=== PATIENT | male | born 1955 | race Caucasian/White ===

== ENCOUNTER 2017-01-24 20:50 | Emergency (ER) | payer OTHER ==
[2017-01-24] MEDS ORDERED: Ondansetron INJ* 2 MG/ML VIAL IV ONE (21:25)
[2017-01-24] MEDS ORDERED: Morphine INJ* 4 MG/ML 1 ML SYRINGE IV ONE (21:25)
[2017-01-24] MEDS ORDERED: NS 0.9% 1000 ML* 1,000 ML IV ONE (21:25)
[2017-01-24] MEDS ORDERED: Meropenem 1 GM PREMIX(*) 1 GM/50 ML BAG IV ONE (21:27)
[2017-01-24 22:24] LABS: Hematocrit 43 % (42-52); Mean Corpuscular HGB Conc 33 g/dl (31-36); Mean Corpuscular Hemoglobin 30 pg (27-31); Mean Corpuscular Volume 93 fL (80-94); Mean Platelet Volume 9 um3 (7.4-10.4); Red Blood Count 4.62 10^6/ul (4.0-5.4); Red Cell Distribution Width 14 % (10.5-15); White Blood Count 35.3 10^3/ul (3.5-10.8)
[2017-01-24] MEDS ORDERED: Acetaminophen TAB* 325 MG PO ONE (22:25)
[2017-01-24 22:27] LABS: Add Diff/Slide Review? Slide Review Added; Comments Flag Yes
[2017-01-24 22:36] LABS: Albumin 2.4 g/dL (3.2-5.2); BUN/Creatinine Ratio 26.2 (8-20); C Reactive Protein 333.61 mg/L (< 5.00); Calcium 8.5 mg/dL (8.6-10.3); EGFR African American 52.6 (>60); EGFR Non-African American 40.9 (>60); Globulin 4.6 g/dL (2-4); Immature Granulocytes 31 % (0-9); Metamyelocytes % 1 % (0-2); Neutrophil % 64 % (38-83); Potassium 3.5 mmol/L (3.5-5.0); RBC Morphology Normal (Normal); Total Bilirubin 1.2 mg/dL (0.2-1.0)
[2017-01-24 22:39] LABS: Troponin I 0.04 ng/mL (<0.04)
[2017-01-24] MEDS ORDERED: Lidocaine 1%* 5 ML VIAL ONE (23:00)
[2017-01-24] MEDS: NS 0.9% 1000 ML* 2,000 ML IV ONE ×2 (23:00→23:56)
[2017-01-24] MEDS ORDERED: NS 0.9% IV ONE (23:14)
--- NOTE | 2017-01-24 23:14 | ED ---
Kimberly Hernandez Thomas, scribed for Shantell Amor MD on 01/24/17 at 2222 . Abdominal Pain/Male - HPI Summary HPI Summary: The pt is a 61 y/o M presenting to the ED c/o intermittent LLQ abd pain that began four days ago s/p falling four days ago. The pain is aggravated by movement and alleviated by nothing. 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 Pt additionally c/o diarrhea, edema to his mid calf, fever (100.9 at home), and blood on the stretcher used to carry him of unknown origin. Pt denies weakness. He is on warfarin. His blood glucose was 181, measured by EMS. PMHx: DM, VA (20 years ago), A-Fib, HTN. PSHx: cardiac catheterization. SHx: no smoking, no alcohol use. FHx: HTN. - History of Current Complaint Chief Complaint: EDAbdPain Stated Complaint: ABD PAIN Time Seen by Provider: 01/24/17 21:13 Hx Obtained From: Patient, EMS Onset/Duration: Sudden Onset, Lasting Days - 4, Still Present, Worse Since - progressively Timing: Intermittent Location: Discrete At: LLQ Aggravating Factor(s): Nothing Alleviating Factor(s): Nothing Associated Signs And Symptoms: Positive: Fever, Diarrhea, Other - POS: edema to mid calf, blood on stretcher of unknown origin; NEG: weakness - Allergies/Home Medications Allergies/Adverse Reactions: Allergies Allergy/AdvReac Type Severity Reaction Status Date / Time No Known Allergies Allergy Verified 06/04/15 08:04 PMH/Surg Hx/FS Hx/Imm Hx Previously Healthy: No Endocrine/Hematology History: Reports: Hx Diabetes - BORDERLINE - NO MEDS, Hx Thyroid Disease - HYPOTHYROID Cardiovascular History: Reports: Hx Angina, Hx Coronary Artery Disease, Hx Hypertension, Hx Peripheral Vascular Disease - ON MEDICATION FOR, Other Cardiovascular Problems/Disorders - HX OF AFIB Respiratory History: Denies: Hx Asthma, Hx Chronic Obstructive Pulmonary Disease (COPD) GI History: Denies: Hx Ulcer Sensory History: Reports: Hx Cataracts - LEFT EYE, Hx Glaucoma - BILATERAL Denies: Hx Contacts or Glasses, Hx Hearing Aid Opthamlomology History: Reports: Hx Cataracts - LEFT EYE, Hx Glaucoma - BILATERAL Denies: Hx Contacts or Glasses - Surgical History Surgery Procedure, Year, and Place: RIGHT EYE CATARACT- 5 YEARS AGO. ANKLE SURGERY 25 YEARS AGO. 25 YEARS AGO- CARDIAC CATHETERIZATION Hx Anesthesia Reactions: No - Immunization History Date of Tetanus Vaccine: <10 years Date of Influenza Vaccine: Fall 2012 Infectious Disease History: No Infectious Disease History: Denies: Hx Hepatitis, Hx Human Immunodeficiency Virus (HIV), Traveled Outside the US in Last 30 Days - Family History Known Family History: Positive: Hypertension - Social History Alcohol Use: None Substance Use Type: Reports: None Smoking Status (MU): Never Smoked Tobacco Have You Smoked in the Last Year: No Review of Systems Positive: Fever - 101.4 in the ED Positive: Abdominal Pain - LLQ, onset 4 days ago s/p fall, Diarrhea, Other - POS : blood on stretcher of unknown origin Positive: Edema - to mid calf Neurological: Other - POS: fall Negative: Weakness All Other Systems Reviewed And Are Negative: Yes Physical Exam Triage Information Reviewed: Yes Vital Signs On Initial Exam: Initial Vitals Temp Pulse Resp BP Pulse Ox 101.4 F 99 17 118/103 96 01/24/17 21:02 01/24/17 21:02 01/24/17 21:02 01/24/17 21:02 01/24/17 21:02 Vital Signs Reviewed: Yes Appearance: Positive: Well-Appearing, No Pain Distress Skin: Positive: Warm, Skin Color Reflects Adequate Perfusion, Dry Eyes: Positive: EOMI, DELISA ENT: Positive: Pharynx normal, TMs normal, Other - He is mildly hard of hearing Neck: Positive: Supple, Nontender Respiratory/Lung Sounds: Positive: Clear to Auscultation, Breath Sounds Present , Other - Tachycardic. Negative: Rales, Rhonchi, Wheezes Cardiovascular: Positive: RRR. Negative: Murmur, Rub, Other - NEG: gallop Abdomen Description: Positive: Nontender, Soft, Other: - His abdomen is morbidly obese. He has LLQ pain on exam. When I lift the pannus, there appears to be a second pannus. This is erythamatous and tender to the touch. Most of his pain is in the LlQ. His penis and scrotum are intact but it is hard to tell. There is no rebound.. Negative: Distended, Guarding Bowel Sounds: Positive: Present Musculoskeletal: Positive: Strength/ROM Intact, Edema Left, Edema Right Neurological: Positive: Sensory/Motor Intact, Alert, Oriented to Person Place, Time, CN Intact II-III Psychiatric: Positive: Affect/Mood Appropriate Procedures - Procedure Summary Procedure Summary: Pt with pressures dropping into the 80's with subsequent loss of IV access. Nurses were able to get IV access, but IO placed in right tibia by me. Pt tolerated procedure well line flushed easily Diagnostics - Vital Signs Vital Signs Temp Pulse Resp BP Pulse Ox 01/24/17 21:02 101.4 F 99 17 118/103 96 - Laboratory Lab Results: Lab Results 01/24/17 01/24/17 01/24/17 Range/Units 21:50 21:50 21:50 WBC 35.3 H (3.5-10.8) 10^3/ul RBC 4.62 (4.0-5.4) 10^6/ul Hgb 14.0 (14.0-18.0) g/dl Hct 43 (42-52) % MCV 93 (80-94) fL MCH 30 (27-31) pg MCHC 33 (31-36) g/dl RDW 14 (10.5-15) % Plt Count 616 H (150-450) 10^3/ul MPV 9 (7.4-10.4) um3 Immature Gran % (Auto) 31 H (0-9) % Neut % (Auto) 94.6 H (38-83) % Lymph % (Auto) 1.6 L (25-47) % [place] % (Auto) 3.6 (1-9) % Eos % (Auto) 0 (0-6) % Baso % (Auto) 0.2 (0-2) % Absolute Neuts (auto) 33.3 H (1.5-7.7) 10^3/ul Absolute Lymphs (auto) 0.6 L (1.0-4.8) 10^3/ul Absolute Monos (auto) 1.3 H (0-0.8) 10^3/ul Absolute Eos (auto) 0 (0-0.6) 10^3/ul Absolute Basos (auto) 0.1 (0-0.2) 10^3/ul Absolute Nucleated RBC 0 10^3/ul Neutrophils % 64 (38-83) % Band Neutrophils % 30 H (0-8) % Lymphocytes % 2 L (25-47) % Monocytes % 3 (0-13) % Metamyelocytes % 1 (0-2) % Nucleated RBC % 0 Normal RBC Morphology Normal (Normal) Sodium 133 (133-145) mmol/L Potassium 3.5 (3.5-5.0) mmol/L Chloride 98 L (101-111) mmol/L Carbon Dioxide 20 L (22-32) mmol/L Anion Gap 15 H (2-11) mmol/L BUN 45 H (6-24) mg/dL Creatinine 1.72 H (0.67-1.17) mg/dL Est GFR ( Amer) 52.6 (>60) Est GFR (Non-Af Amer) 40.9 (>60) BUN/Creatinine Ratio 26.2 H (8-20) Glucose 204 H (70-100) mg/dL Calcium 8.5 L (8.6-10.3) mg/dL Total Bilirubin 1.20 H (0.2-1.0) mg/dL AST 28 (13-39) U/L ALT 20 (7-52) U/L Alkaline Phosphatase 102 (34-104) U/L Troponin I 0.04 H* (<0.04) ng/mL C-Reactive Protein 333.61 H (< 5.00) mg/L B-Natriuretic Peptide 245 H ( - 100) pg/mL Total Protein 7.0 (6.4-8.9) g/dL Albumin 2.4 L (3.2-5.2) g/dL Globulin 4.6 H (2-4) g/dL Albumin/Globulin Ratio 0.5 L (1-3) Lipase 16 (11.0-82.0) U/L Result Diagrams: 01/24/17 21:50 01/24/17 21:50 Lab Statement: Any lab studies that have been ordered have been reviewed, and results considered in the medical decision making process. - EKG 21:31 Cardiac Rate: Tachycardia - 171 BPM EKG Interpretation: A-Fib. RBBB. Abdominal Pain Fem Course/Dx - Course Course Of Treatment: 61 yo male with fever and llq and a very difficult abd exam given an extra panus wbc of 35 k with elevated lactic acid. On initial exam fluids were ordered slowly just because of the gentlemans size of 467 lbs, but now that labs are back 2L of fluid will be bolused in at a time to get to 6L assuming the pt tolerates it. Merepenem was ordered right after the initial exam because of the fever and llq pain. Case has been discussed with Dr. Brizuela for admission. Case then discussed with Dr. Morillo as pressures started to drop to the 80's. Yisel suggested placing an IO and giving the fluids and suggested it was ok to give pressors through the IO. Pt now in CT IO placed, fluids being given with pressure bags and case signed out to Dr. Mccann - Diagnoses Provider Diagnoses: Abdominal pain, Leukocytosis - Provider Notifications Discussed Care Of Patient With: Nuno Brizuela Time Discussed With Above Provider: 10:00 Instructed by Provider To: Other - Dr. Brizuela, legislative assistant, admits the [place] [facility] I also consulted with Dr. Hoover, cardiology, at 22:51 regarding patient care. He advised me to IO the patient. - Critical Care Time Critical Care Time: 30-74 min - 35 minutes Discharge - Discharge Plan Condition: Stable Disposition: HOME Referrals: Telly Godoy MD [Primary Care Provider] - The documentation as recorded by the Kimberly leigh Thomas accurately reflects the service I personally performed and the decisions made by me, Shantell Amor MD.
[2017-01-25] MEDS ORDERED: NS 0.9% 1000 ML* 1,000 ML IV SCH (01:30)
[2017-01-25 01:51] VITALS: BP 91/56
--- NOTE | 2017-01-25 07:28 | RAD ---
INDICATION: Fever. COMPARISON: There are no prior studies available for comparison. TECHNIQUE: A portable view of the chest was obtained. FINDINGS: The heart is moderately enlarged. The lungs are clear. No pleural effusion is seen. IMPRESSION: CARDIOMEGALY.
--- NOTE | 2017-01-25 07:59 | RAD ---
CLINICAL HISTORY: Moderately obese male with left lower quadrant pain COMPARISON: None TECHNIQUE: Multiple contiguous axial CT scans were obtained of the abdomen and pelvis after the administration of intravenous contrast. Coronal and sagittal multiplanar reformations are submitted for review. Oral contrast was administered. Delayed images were obtained through the abdomen and pelvis. FINDINGS: Evaluation is limited secondary to patient body habitus. LUNG BASES: The lung bases are clear. LIVER: The liver is homogeneously enlarged measuring 21 cm in long axis. BILE DUCTS: There is no intrahepatic or extrahepatic biliary dilatation. GALLBLADDER: Multiple gallstones are noted. There is no pericholecystic inflammatory change. PANCREAS: The pancreas is normal, without mass or ductal dilatation. SPLEEN: Normal in size and appearance. UPPER GI TRACT: Evaluation of the gastrointestinal tract is limited by incomplete gastric distention. The upper GI tract is unremarkable. SMALL BOWEL AND MESENTERY: The small bowel is normal in contour, course, and caliber. There is no obstruction or dilatation. COLON: The colon is normal in contour, course, caliber. There is no pericolonic inflammatory change. Normal appendix ADRENALS: Normal bilaterally. KIDNEYS: The kidneys are normal in shape, size, contour, and axis. There is no hydronephrosis or nephrolithiasis. BLADDER: The bladder is smooth in contour. PELVIC ORGANS: The prostate gland is normal. The seminal vesicles are symmetric. AORTA: The aorta is normal. IVC: Unremarkable LYMPH NODES: There is no lymphadenopathy by size criteria. ABDOMINAL WALL: There is no evidence for abdominal wall hernia. BONES AND SOFT TISSUES: Mild degenerative changes are noted. There is extensive subcutaneous emphysema of the the lower pelvis and perineum, with possible scrotal wall edema. There is minimal retroperitoneal extension on the right. OTHER: None IMPRESSION: 1. 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 2. CHOLELITHIASIS. 3. HEPATOMEGALY.
== END 2017-01-25 01:55 | disposition short-term general hospital (02) ==
LOC: ED 20:50
DX: R10.32 Left lower quadrant pain (principal); D72.829 Elevated white blood cell count, unspecified; I25.10 Atherosclerotic heart disease of native coronary artery without angina pectoris; I10 Essential (primary) hypertension; I73.9 Peripheral vascular disease, unspecified; I48.91 Unspecified atrial fibrillation; E11.9 Type 2 diabetes mellitus without complications; I25.2 Old myocardial infarction; Z79.01 Long term (current) use of anticoagulants; E03.9 Hypothyroidism, unspecified; R73.03 Prediabetes; I45.10 Unspecified right bundle-branch block; K80.20 Calculus of gallbladder without cholecystitis without obstruction; R16.0 Hepatomegaly, not elsewhere classified; I51.7 Cardiomegaly
CPT/HCPCS: 36415; 71010; 74176; 80053; 83605; 83690; 83880; 84484; 85025; 86140; 87040; 93005; 96360; 96361; 96374; 96375; 99285; A9270-GY; J2185; J2270; J2405

== ENCOUNTER → 2017-06-01 05:54 | Emergency (ER) | payer OTHER ==
[~2017-06-01 05:54] MED LIST: Acetaminophen TAB* 325 MG PO ONE; Diltiazem IV* 5 MG/ML 5 ML VIAL (for loading dose/IV Push) (25 MG) IV SLOW PU ONE; Diltiazem TAB* 30 MG PO ONE; Iodixanol* (CONTRAST) 320 MG/ML 100 ML SDV IV ONE; NS 0.9% 1000 ML* 1,000 ML IV ONE; NS 0.9% 1000 ML* 3,000 ML IV ONE; Piperacillin/Tazobac ADVAN(*) 3.375 GM in NS 0.9% 100 ML* 100 ML IVPB ONE; Vancomycin(*) 1,000 MG in NS 0.9% 250 ML* 250 ML IVPB ONE
[2017-06-01 06:43] LABS: ABS Basophils 0.1 10^3/ul (0-0.2); ABS Eosinophils 0 10^3/ul (0-0.6); ABS Lymphocytes 0.4 10^3/ul (1.0-4.8); ABS Monocytes 0.5 10^3/ul (0-0.8); ABS Neutrophils 19.9 10^3/ul (1.5-7.7); ABS Nucleated RBC 0 10^3/ul; Eosinophil % 0 % (0-6); Hematocrit 34 % (42-52); Hemoglobin 11.1 g/dl (14.0-18.0); Mean Corpuscular HGB Conc 33 g/dl (31-36); Mean Corpuscular Hemoglobin 29 pg (27-31); Mean Corpuscular Volume 87 fL (80-94); Mean Platelet Volume 9 um3 (7.4-10.4); Nucleated Red Blood Cells % 0; Platelet Count 196 10^3/ul (150-450); Red Blood Count 3.87 10^6/ul (4.0-5.4); Red Cell Distribution Width 17 % (10.5-15); White Blood Count 20.9 10^3/ul (3.5-10.8)
[2017-06-01 06:50] LABS: Urine Appearance Cloudy; Urine Blood 2+ (Negative); Urine Color Yellow; Urine Ketones Negative (Negative); Urine Protein 2+(100 mg/dL) (Negative); Urine Specific Gravity 1.016 (1.010-1.030); Urine Urobilinogen Negative (Negative)
[2017-06-01 06:55] LABS: INR 1.89 (0.77-1.02)
--- NOTE | 2017-06-01 06:56 | ED ---
Pierce Hernandez Abhishek, scribed for Leatha Valentino MD on 06/01/17 at 0617 . HPI Febrile Illness - HPI Summary HPI Summary: This patient is a 61 year old M BIBA accompanied by with a chief complaint of fever since 05/31/17 at 0000. The patient rates the pain 0/10 in severity. Symptoms aggravated by nothing. Symptoms alleviated by nothing. Patients reports speech deficit, lethargic, confusion, SOB, palpitation and weakness. Pertinent PMHx includes AFib. 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/Duration: Started Days Ago - since 05/31/16 at 0000, Still Present Timing: Constant Pain Intensity: 0 Pain Scale Used: 0-10 Numeric Aggravating Factors: Nothing Alleviating Factors: Nothing Associated Signs and Symptoms: SOB, Other: - Allergy/Home Medications Allergies/Adverse Reactions: Allergies Allergy/AdvReac Type Severity Reaction Status Date / Time No Known Allergies Allergy Verified 06/04/15 08:04 Home Medications: Home Medications DULoxetine DR CAP* [Cymbalta CAP*] 30 mg PO DAILY 06/01/17 [History Confirmed ] Diltiazem HCl Coated Beads [Cartia Xt] 120 mg PO DAILY 06/01/17 [History Confirmed 06/01/17] Insulin Glargine [Lantus] 30 unit SC DAILY 06/01/17 [History Confirmed 06/01/17] Rivaroxaban TAB(*) [Xarelto 20 mg] 20 mg PO DAILY 06/01/17 [History Confirmed ] PMH/Surg Hx/FS Hx/Imm Hx Endocrine/Hematology History: Reports: Hx Diabetes - BORDERLINE - NO MEDS, Hx Thyroid Disease - HYPOTHYROID Cardiovascular History: Reports: Hx Angina, Hx Coronary Artery Disease, Hx Hypertension, Hx Peripheral Vascular Disease - ON MEDICATION FOR, Other Cardiovascular Problems/Disorders - HX OF AFIB Respiratory History: Denies: Hx Asthma, Hx Chronic Obstructive Pulmonary Disease (COPD) GI History: Denies: Hx Ulcer Sensory History: Reports: Hx Cataracts - LEFT EYE, Hx Glaucoma - BILATERAL Denies: Hx Contacts or Glasses, Hx Hearing Aid Opthamlomology History: Reports: Hx Cataracts - LEFT EYE, Hx Glaucoma - BILATERAL Denies: Hx Contacts or Glasses - Surgical History Surgery Procedure, Year, and Place: RIGHT EYE CATARACT- 5 YEARS AGO. ANKLE SURGERY 25 YEARS AGO. 25 YEARS AGO- CARDIAC CATHETERIZATION Hx Anesthesia Reactions: No - Immunization History Date of Tetanus Vaccine: <10 years Date of Influenza Vaccine: Fall 2012 Infectious Disease History: Yes Infectious Disease History: Denies: Hx Hepatitis, Hx Human Immunodeficiency Virus (HIV), Traveled Outside the US in Last 30 Days - Family History Known Family History: Positive: Cardiac Disease - CAD, Hypertension - Social History Alcohol Use: None Substance Use Type: Reports: None Smoking Status (MU): Never Smoked Tobacco Have You Smoked in the Last Year: No Review of Systems Positive: Fever Eyes: Negative ENT: Negative Positive: Palpitations Positive: Shortness Of Breath Gastrointestinal: Negative Genitourinary: Negative Musculoskeletal: Negative Skin: Negative Neurological: Other - confusion Positive: Weakness Psychological: Other - lethargic All Other Systems Reviewed And Are Negative: Yes Physical Exam - Summary Physical Exam Summary: VITAL SIGNS: Reviewed. GENERAL: Lethargic HEAD AND FACE: No signs of trauma. No ecchymosis, hematomas or skull depressions. No sinus tenderness. EYES: PERRLA, EOMI x 2, No injected conjunctiva, no nystagmus. EARS: Hearing grossly intact. Ear canals and tympanic membranes are within normal limits. MOUTH: Oropharynx within normal limits. NECK: Supple, trachea is midline, no adenopathy, no JVD, no carotid bruit, no c- spine tenderness, neck with full ROM. CHEST: Symmetric, no tenderness at palpation LUNGS:Decreased breath sounds bilaterally CVS: Regular rate and rhythm, S1 and S2 present, no murmurs or gallops appreciated. ABDOMEN: Large raw area No skin over the suprapubic area No signs of acute infection in the skin region EXTREMITIES: FROM in all major joints, no edema, no cyanosis or clubbing. NEURO: Alert and oriented x 3. No acute neurological deficits. Speech is normal and follows commands. SKIN: Dry and warm Genitourinary: catheter that is draining Triage Information Reviewed: Yes Vital Signs On Initial Exam: Initial Vitals Temp Pulse Resp BP Pulse Ox 100.4 F 144 26 124/50 94 06/01/17 06:05 06/01/17 06:05 06/01/17 06:05 06/01/17 06:05 06/01/17 06:05 Vital Signs Reviewed: Yes - [place] Coma Scale Coma Scale Total: 15 Diagnostics - Vital Signs Vital Signs Temp Pulse Resp BP Pulse Ox 06/01/17 06:05 100.4 F 144 26 124/50 94 - Laboratory Lab Results: Lab Results 06/01/17 06/01/17 06/01/17 Range/Units 06:25 06:25 06:30 WBC 20.9 H (3.5-10.8) 10^3/ul RBC 3.87 L (4.0-5.4) 10^6/ul Hgb 11.1 L (14.0-18.0) g/dl Hct 34 L (42-52) % MCV 87 (80-94) fL MCH 29 (27-31) pg MCHC 33 (31-36) g/dl RDW 17 H (10.5-15) % Plt Count 196 (150-450) 10^3/ul MPV 9 (7.4-10.4) um3 Neut % (Auto) 95.2 H (38-83) % Lymph % (Auto) 2.0 L (25-47) % [place] % (Auto) 2.5 (1-9) % Eos % (Auto) 0 (0-6) % Baso % (Auto) 0.3 (0-2) % Absolute Neuts (auto) 19.9 H (1.5-7.7) 10^3/ul Absolute Lymphs (auto) 0.4 L (1.0-4.8) 10^3/ul Absolute Monos (auto) 0.5 (0-0.8) 10^3/ul Absolute Eos (auto) 0 (0-0.6) 10^3/ul Absolute Basos (auto) 0.1 (0-0.2) 10^3/ul Absolute Nucleated RBC 0 10^3/ul Nucleated RBC % 0 INR (Anticoag Therapy) 1.89 H (0.77-1.02) APTT 40.4 H (26.0-36.3) seconds Urine Color Yellow Urine Appearance Cloudy Urine pH 5.0 (5-9) Ur Specific [place] 1.016 (1.010-1.030) Urine Protein 2+(100 mg/dl) H (Negative) Urine Ketones Negative (Negative) Urine Blood 2+ H (Negative) Urine Nitrate Positive H (Negative) Urine Bilirubin Negative (Negative) Urine Urobilinogen Negative (Negative) Ur Leukocyte Esterase 3+ H (Negative) Urine WBC (Auto) 3+(>20/hpf) H (Absent) Urine RBC (Auto) 3+(>10/hpf) H (Absent) Urine Bacteria 2+ H (Absent) Urine Glucose Negative (Negative) Result Diagrams: 06/01/17 06:25 Lab Statement: Any lab studies that have been ordered have been reviewed, and results considered in the medical decision making process. - Radiology Chest X-ray Radiology Interpretation Completed By: ED Physician - CXR reveals, per radiologist, Cardiomegaly and acute infiltrate as per ED physician. - EKG 0612 EKG Rhythm: Atrial Fibrillation EKG Interpretation: An EKG at 0612 reveals AFIB at 111 bpm, RBBB and no ischemic changes Course/Dx - Course Course Of Treatment: The pt arrived to the [facility] via ambulance presenting with c /o of fever, lethargy, weakness, and SOB. Pertinent PMHx includes AFib. the pt will be signed out to Dr. Cee, pending disposition and awaiting lab results. Dx will be urinary tract infection. Pt will be given 1 liter of IV fluid to avoid volume overload. - Diagnoses Provider Diagnoses: Urinary tract infection Discharge - Discharge Plan Condition: Stable Disposition: OTHER Discharge Disposition Comment: Pt will be signed out to Dr. Cee, pending disposition. Referrals: Telly Godoy MD [Primary Care Provider] - The documentation as recorded by the Pierce leigh Abhishek accurately reflects the service I personally performed and the decisions made by Chicho dent Abdul, MD.
[2017-06-01 06:59] LABS: EGFR Non-African American 73.1 (>60)
--- NOTE | 2017-06-01 08:13 | RAD ---
INDICATION: Cough. COMPARISON: Comparison is made with prior study from January 24, 2017. TECHNIQUE: A portable view of the chest was obtained. FINDINGS: The heart is moderately enlarged and unchanged. There is increased density at the left lung base and a small left pleural effusion. IMPRESSION: 1. LEFT BASILAR INFILTRATE AND SMALL LEFT PLEURAL EFFUSION. 2. CARDIOMEGALY.
--- NOTE | 2017-06-01 09:07 | RAD ---
INDICATION: Altered mental status. COMPARISON: There are no prior studies available for comparison. TECHNIQUE: Contiguous axial sections of the brain were obtained from the skull base to the vertex without contrast. The exam is slightly limited. FINDINGS: The ventricles, cisterns and sulci are within normal limits. No significant focal abnormality or mass effect is seen. There is no evidence for hemorrhage. No significant focal osseous abnormality is seen. The visualized portion of the paranasal sinuses and mastoid air cells appear clear. IMPRESSION: SLIGHTLY LIMITED EXAM, NO EVIDENCE FOR ACUTE INTRACRANIAL ABNORMALITY.
--- NOTE | 2017-06-01 09:11 | RAD ---
INDICATION: Abdominal pain. COMPARISON: Comparison is made with a prior CT of the abdomen and pelvis from January 24, 2017. TECHNIQUE: A CT scan of the abdomen and pelvis was performed with intravenous and oral contrast following intravenous injection of 141 ml of Visipaque 320 nonionic contrast. Contiguous axial sections were obtained from the lung bases through the symphysis pubis. Images were reconstructed in the coronal and sagittal planes. FINDINGS: There are small bilateral pleural effusions and dependent bilateral lower lobe infiltrates. The liver is moderately enlarged and decreased in attenuation consistent with fatty infiltration. No significant focal hepatic abnormality is seen. There are calcified gallstones present. The spleen is within normal limits in size. There is a hypodense lesion present along the lateral aspect of the spleen measuring 2.9 x 1.8 cm in size. This appears to be present on the prior noncontrast study although is not as well seen. The adrenal glands and kidneys are normal in size. No significant focal renal abnormality or hydronephrosis is seen. The aorta is normal in caliber with mild calcific plaque present. No significant enlarged retroperitoneal lymph nodes are seen. The stomach, small and large bowel appear nondistended. The appendix is within normal limits. There is mild sigmoid diverticulosis without evidence for diverticulitis or colitis. There is a catheter within the urinary bladder which appears decompressed. There is soft tissue swelling and postsurgical changes in the lower anterior abdominal and pelvic brennan. There is a cystic structure present in the anterior proximal right thigh measuring 4.7 x 3.7 cm in size. No free intraperitoneal air or fluid is seen. No significant focal osseous abnormality is seen. IMPRESSION: 1. SMALL BILATERAL PLEURAL EFFUSIONS AND DEPENDENT BILATERAL LOWER LOBE INFILTRATES. 2. HEPATOMEGALY AND HEPATIC STEATOSIS. 3. CHOLELITHIASIS. 4. HYPODENSE SPLENIC LESION LIKELY UNCHANGED FROM THE PRIOR STUDY. 5. POSTSURGICAL CHANGES IN THE ANTERIOR ABDOMINAL AND PELVIC BRENNAN. 6. SMALL CYSTIC STRUCTURE IN THE PROXIMAL ANTERIOR RIGHT THIGH.
[2017-06-01 13:18] VITALS: BP 161/99
--- NOTE | 2017-06-01 13:37 | ED ---
Abilio Hernandez Natalie, scribed for Pete Cee MD on 06/01/17 at 1157 . Progress - Progress Note Progress Note: per request of family, pt accepted for transfer to [facility] for evaluation by primary surgical team. hemodynamically stable. given fluids and abx. Accepting [address] at [facility] Course/Dx - Course Course Of Treatment: The [facility] presenting with c /o of fever, lethargy, weakness, and SOB. Pertinent PMHx includes AFib. the pt will be signed out to Dr. Cee, pending disposition and awaiting lab results. Dx will be urinary tract infection. Pt will be given 1 liter of IV fluid to avoid volume overload. - Diagnoses Provider Diagnoses: Urinary tract infection - Provider Notifications Discussed Care Of Patient With: [facility] Time Discussed With Above Provider: 11:56 - I discussed the transfer of the patient to [facility] for further care. Instructed by Provider To: Transfer Reason For Transfer: Specialty or service not available at [facility]. The documentation as recorded by the Abilio leigh Natalie accurately reflects the service I personally performed and the decisions made by Coleman dent Dong, MD.
--- NOTE | 2017-06-03 09:06 | PN ---
Progress Note - Progress Note Date of Service: 06/01/17 Note: patient diagnosed with UTI. given zosyn and vanco. was transferred to [facility]. preliminary culture results grew >100,000 of gram negative bacilli. will forward to [facility] for comprehensive care.
== END | disposition short-term general hospital (02) ==
LOC: ED 05:54
DX: N39.0 Urinary tract infection, site not specified (principal); Z86.79 Personal history of other diseases of the circulatory system; R50.9 Fever, unspecified; R00.2 Palpitations; R06.02 Shortness of breath
CPT/HCPCS: 36415; 70450; 71045; 74177; 80053; 81003; 81015; 83605; 84484; 85025; 85610; 85730; 87040; 87077; 87086; 87184; 87186; 87205; 87502; 93005; 99284; A9270-GY; J2543; J3370; Q9967

== ENCOUNTER 2018-09-24 12:41 | Emergency (ER) | payer OTHER ==
--- OUTSIDE RECORDS SUMMARY | 2018-09-24 12:47 | XMS REPORT | Continuity of Care Document ---
:1955 External Reference #:[id number] Author Name Larry Trotter M.D. Address [address] [place] [address] Care Team Providers Name Role Phone Chrissy Blair M.D. Primary Care Physician Unavailable Payers Date Identification Numbers Payment Provider Subscriber Policy Number: [id number] [employer] Ppo/Pos[employer]Epo[employer]Nap Jose [employer] Group Number: [id number] [id number] PayID: [id number] [place] [address] Advance Directives Description No Information Available Problems Active Problems Provider Date Hypothyroidism Larry Trotter M.D. Onset: 09/23/2014 Asymptomatic coronary heart disease Larry Trotter M.D. Onset: 09/23/2014 Essential hypertension Larry Trotter M.D. Onset: 09/23/2014 Pure hypercholesterolemia Larry Trotter M.D. Onset: 09/23/2014 Type 2 diabetes mellitus Larry Trotter M.D. Onset: 09/23/2014 Glaucoma Larry Trotter M.D. Onset: 09/23/2014 Primary open angle glaucoma Larry Trotter M.D. Onset: 01/17/2015 Severe / Advanced / End Stage Glaucoma Larry Trotter M.D. Onset: 2014 Pseudophakia Larry Trotter M.D. Onset: 01/17/2015 Primary open angle glaucoma of right eye Larry Trotter M.D. Onset: 2016 Primary open angle glaucoma of left eye Larry Trotter M.D. 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 Every Morning 0.5% GFS Brimonidine Tartrate 1 drop right eye Day H40.11x3 Larry Trotter, 12/2015 0.2% twice a day M.D. Solution Doxycycline 1 capsule 1x a Unknown Monohydrate day 100mg Capsules Zinc Oxide Unknown 20% Ointment Mupirocin Unknown 2% Ointment Xarelto Unknown 20mg Tablets Duloxetine HCL Unknown 30mg Caps DR Part Simvastatin Unknown 20mg Tablets Bydureon 1x a week Unknown 2mg Pen (Saturday) Acetaminophen as needed Unknown 500mg Tablets Diltiazem HCL ER Unknown 120mg Caps ER 24HR Synthroid Telly Godoy 75mcg Tablets M.D. Lisinopril bid Telly Godoy 20mg Tablets M.D. History Medications Alphagan P 1 drop right 15ml H40.11x3 Larry Trotter, 01/17/2015 - 0.15% eye twice a day M.D. 07/04/2015 Solution Diltiazem HCL ER Telly Godoy - Coated Beads M.D. 03/04/2018 240mg Caps ER 24HR Hydrocodone-Acetamino Unknown - phen 07/23/2015 5-325mg Tablets Warfarin Sodium Telly Godoy - 5mg M.D. 03/04/2018 Tablets Pravastatin Sodium Jayen, Telly - 20mg M.D. 03/04/2018 Tablets Immunizations Description No Information Available Vital Signs Description No Information Available Results Description No Information Available Procedures Date Code Description Status 03/04/2018 10312 Scanning Computerized Ophthalmic Diagnostic Imag Posterior Completed Seg On 03/04/2018 77459 Visual Field Exam Extended Completed 03/04/2018 90766 Est Patient Comprehensive Exam Completed 07/23/2016 61977 Est Patient Intermediate Exam Completed 01/06/2016 86564 Scanning Computerized Ophthalmic Diagnostic Imag Posterior Completed Seg On 01/06/2016 75667 Visual Field Exam Extended Completed 01/06/2016 24216 Est Patient Comprehensive Exam Completed 07/04/2015 60920 Est Patient Intermediate Exam Completed 01/17/2015 02472 Est Patient Intermediate Exam Completed 12/28/2014 09871 Visual Field Exam Extended Completed 12/24/2014 31860 Patient No Show For Appt Completed 09/23/2014 65845 Scanning Computerized Ophthalmic Diagnostic Imag Posterior Completed Seg On 09/23/2014 22412 Visual Field Exam Extended Completed 09/23/2014 24675 Gonioscopy Completed 09/23/2014 95426 Est Patient Intermediate Exam Completed 03/22/2014 20332 Est Patient Intermediate Exam Completed 09/16/2013 00083 Extracapsular Cataract Extraction W/Intraocular Lens Completed 09/08/2013 01191 Ophthalmic Biometry Completed 09/08/2013 09705 Scanning Computerized Opthalmic Diagnostic Posterior Seg Completed Retina 08/27/2013 13779 Est Patient Intermediate Exam Completed 08/27/2013 55376 Visual Field Exam Extended Completed 02/26/2013 52480 Scanning Computerized Ophthalmic Diagnostic Imag Posterior Completed Seg On 02/26/2013 60896 Visual Field Exam Extended Completed 02/26/2013 53553 Est Patient Comprehensive Exam Completed 08/27/2012 13420 Visual Field Exam Extended Completed 08/14/2012 97252 Est Patient Intermediate Exam Completed 08/14/2012 605 Cleaning Cloth Completed 02/14/2012 32812 Est Patient Intermediate Exam Completed 02/14/2012 28974 Visual Field Exam Extended Completed 02/14/2012 65939 Fundus Photography With Interpretation And Report Completed 10/11/2011 49886 Scanning Computerized Ophthalmic Diagnostic Imag Posterior Completed Seg On 10/11/2011 56538 Est Patient Intermediate Exam Completed 07/25/2011 40078 Visual Field Exam Extended Completed 07/12/2011 89864 Est Patient Intermediate Exam Completed 03/29/2011 21910 Trabeculoplasty By Laser Surgery Completed 02/16/2011 67250 Trabeculoplasty By Laser Surgery Completed 01/31/2011 55289 Visual Field Exam Extended Completed 01/26/2011 70761 Est Patient Intermediate Exam Completed 06/13/2010 86003 Trabeculoplasty By Laser Surgery Completed 05/26/2010 37553 Est Patient Intermediate Exam Completed 01/19/2010 57386 Scanning Laser W/Interp And Report Completed 01/19/2010 81838 Est Patient Intermediate Exam Completed 09/28/2009 99621 Visual Field Exam Extended Completed 07/27/2009 42697 Est Patient Intermediate Exam Completed 04/18/2009 39224 Visual Field Exam Extended Completed 04/18/2009 35445 Est Patient Intermediate Exam Completed 12/15/2008 31517 Extracapsular Cataract Extraction W/Intraocular Lens Completed 12/09/2008 81704 Scanning Laser W/Interp And Report Completed 12/09/2008 81366 Ophthalmic Biometry Completed 09/30/2008 96623 Fundus Photography With Interpretation And Report Completed 09/30/2008 31083 Est Patient Comprehensive Exam Completed 11/17/2007 23946 Est Patient Intermediate Exam Completed 11/10/2007 63655 Visual Field Exam Extended Completed 08/01/2007 68578 Est Patient Intermediate Exam Completed 02/11/2007 54387 Est Patient Intermediate Exam Completed 10/11/2006 04646 Scanning Laser W/Interp And Report Completed 10/11/2006 15733 Est Patient Intermediate Exam Completed 06/07/2006 35223 Visual Field Exam Extended Completed 06/04/2006 10250 Est Patient Comprehensive Exam Completed 10/01/2005 70968 Scanning Laser W/Interp And Report Completed 10/01/2005 64321 Visual Field Exam Extended Completed 10/01/2005 31304 Est Patient Intermediate Exam Completed 06/08/2005 57782 Est Patient Intermediate Exam Completed 02/07/2005 88841 Determination Of Refractive State Completed 02/07/2005 93093 Est Patient Comprehensive Exam Completed 10/20/2004 65056 Visual Field Exam Extended Completed 10/06/2004 64069 Est Patient Intermediate Exam Completed 07/12/2004 19590 Cancelled Appointment Completed 07/04/2004 45294 Rescheduled Appointment Completed 06/27/2004 42996 Rescheduled Appointment Completed 03/31/2004 36959 Scanning Laser W/Interp And Report Completed 03/31/2004 50319 Visual Field Exam Intermediate Completed 02/25/2004 40711 Fundus Photography With Interpretation And Report Completed 10/27/2003 92627 Est Patient Comprehensive Exam Completed 10/27/2003 89152 Patient No Show For Appt Completed 10/21/2003 114 Polycarb SV Completed 08/26/2003 03866 Determination Of Refractive State Completed 08/26/2003 61696 Est Patient Intermediate Exam Completed Encounters Type Date Location Provider Dx Diagnosis Office Visit 03/01/2015 Larry Pierre, H40.11x3 Primary 8:00a radha ANGUIANO M.D. open-angle glaucoma, severe stage Z96.1 Presence of intraocular lens Office Visit 09/08/2013 12:00p Larry Pierre 366.16 Senile Nuclear radha ANGUIANO M.D. Sclerosis / Cataract 365.11 Primary Open Angle Glaucoma 365.73 Severe / Advanced / End Stage Glaucoma Office Visit 12/09/2008 8:30a Larry Pierre 366.16 Senile Nuclear radha ANGUIANO M.D. Sclerosis / Cataract 365.11 Primary Open Angle Glaucoma Office Visit 03/25/2007 2:15p Larry Pierre 365.11 Primary Open radha ANGUIANO M.D. Angle Glaucoma Plan of Treatment 09/02/2018 - Larry Trotter M.D.H40.1113 Primary open-angle glaucoma, right eye, severe stageComments:Smoking can increase the risk of developing or worsening any eye related disease, as well as affect your overall health. If you are a smoker, we strongly recommend that you quit.If you are not a smoker, we strongly recommend that you do not start. Your Glaucoma is stable at this time in your right eye. Your eye pressure is within an acceptable range, and your testing does not show any further deterioration at this time. Please continue your treatment as directed and keep follow up appointments.Follow up:6 Month Follow Up DFE/IOP OCT ON Visual Field 30-2 You can expect to have your eyes dilated at yournext visit. If Dr. Trotter orders any additional testing, it may require extra time. We recommend thatyou bring sunglasses, as dilation drops often make you light sensitive until they wear off. We always recommend you bring someone to drive you home if you are uncomfortable driving with your eyes dilated. If you have any questions before your next visit, feel free to call our office at .h40.1121 Primary open-angle glaucoma, left eye , mild stageComments:Your glaucoma is stable at this time in your left eye.Your eye pressure is within an acceptable range, and your testing does not show any further deterioration at this time. Please continue your treatment as directed and keep follow up appointments.E11.9 Type 2 diabetes mellitus without complicationsComments:You have diabetes. I do not detect any changes in both of your retinas from diabetes at this time. Proper control of your diabetes is important for the health of your eyes. Changes in your eyes from diabetes can happen without symptoms, so it is important that you have your eyes examined. Dr. Trotter has sent a report to your primary care doctor, letting them know there is no damage from the Diabetes in your eyes.Z96.1 Presence of intraocular lensComments:The artificial lens implants in both eyes appear to be stable at this time.
[2018-09-24] MEDS ORDERED: Ondansetron INJ* 2 MG/ML VIAL IV ONE (13:21)
[2018-09-24] MEDS ORDERED: Morphine 4 MG/ML VIAL (1 ml) 4 MG/ML VIAL IV ONE ×2 (13:21→15:09)
[2018-09-24] MEDS ORDERED: NS 0.9% 1000 ML** 1,000 ML IV ONE ×2 (13:22→16:29)
--- NOTE | 2018-09-24 13:29 | ED ---
Abdominal Pain/Male - HPI Summary HPI Summary: Patient is a 62 y/o M presenting to ED via EMS with complaints of "severe" RLQ pain. Patient reports that he went to work this morning asymptomatic. As the day progressed, he developed a "stomach ache" and then experienced abdominal pain at RLQ and an episode of nauseousness. Patient decided to go home from work as a result. However, abdominal pain continued to worse, he experienced nausea once more, and vomited "yellow bile" around 1045 this morning. He notes that did not experience relief in Sx after vomiting. In the room, pain is still present. Per triage, "Denies any diarrhea, sob, cp". 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 Hx of afib, thyroid problems, he notes that he is borderline diabetic. Hx of [place] decades ago is noted as well, patient denies stent placement. Patient states he is on Lisinopril and Xarelto. He notes that he tolerates morphine fine and is agreeable with receiving pain medication. On triage, pain is rated 7/10, nothing is noted to aggravate/alleviate Sx. Home medications and allergies are reviewed. Patient's , Devorah is present in the room. - History of Current Complaint Chief Complaint: EDAbdPain Stated Complaint: VOMITING PER EMS Time Seen by Provider: 09/24/18 13:09 Hx Obtained From: Patient Onset/Duration: Lasting Hours - onset this morning, Still Present Timing: Constant, Lasting Hours - onset this morning Severity Initially: Moderate Severity Currently: Severe - 7/10 Pain Intensity: 7 Pain Scale Used: 0-10 Numeric - 7/10 Location: Discrete At: RLQ Aggravating Factor(s): Nothing Alleviating Factor(s): Nothing Associated Signs And Symptoms: Positive: Nausea, Vomiting, Other - NEGATIVE - SOB. Negative: Chest Pain, Diarrhea - Allergies/Home Medications Allergies/Adverse Reactions: Allergies Allergy/AdvReac Type Severity Reaction Status Date / Time No Known Allergies Allergy Verified 05/01/18 14:35 Home Medications: Home Medications DULoxetine DR INFANTE* [Cymbalta CAP*] 30 mg PO BID 09/24/18 [History Confirmed 06/14] Exenatide Microspheres [Bydureon] 2 mg SUBCUT WEEKLY 09/24/18 [History Confirmed 09/24/18] Lisinopril TAB* [Prinivil TAB*] 20 mg PO BID 09/24/18 [History Confirmed ] PMH/Surg Hx/FS Hx/Imm Hx Endocrine/Hematology History: Reports: Hx Diabetes, Hx Thyroid Disease - HYPOTHYROID Cardiovascular History: Reports: Hx Angina, Hx Coronary Artery Disease, Hx Hypertension, Hx Peripheral Vascular Disease - ON MEDICATION FOR, Other Cardiovascular Problems/Disorders - HX OF AFIB Respiratory History: Denies: Hx Asthma, Hx Chronic Obstructive Pulmonary Disease (COPD) GI History: Denies: Hx Ulcer History: Denies: Hx Renal Disease Sensory History: Reports: Hx Cataracts - LEFT EYE, Hx Glaucoma - BILATERAL Denies: Hx Contacts or Glasses, Hx Hearing Aid Opthamlomology History: Reports: Hx Cataracts - LEFT EYE, Hx Glaucoma - BILATERAL Denies: Hx Contacts or Glasses - Surgical History Surgery Procedure, Year, and Place: RIGHT EYE CATARACT- 5 YEARS AGO. ANKLE SURGERY 25 YEARS AGO. 25 YEARS AGO- CARDIAC CATHETERIZATION. GANGRENE REMOVED FROM ABDOMEN-01/2017 Hx Anesthesia Reactions: No - Immunization History Date of Tetanus Vaccine: <10 years Date of Influenza Vaccine: Fall 2012 Infectious Disease History: No Infectious Disease History: Denies: Hx Hepatitis, Hx Human Immunodeficiency Virus (HIV), Traveled Outside the [place] in Last 30 Days - Family History Known Family History: Positive: Cardiac Disease - CAD, Hypertension - Social History Alcohol Use: None Substance Use Type: Reports: None Smoking Status (MU): Never Smoked Tobacco Have You Smoked in the Last Year: No Review of Systems Negative: Chest Pain Negative: Shortness Of Breath Positive: Abdominal Pain, Vomiting, Nausea. Negative: Diarrhea All Other Systems Reviewed And Are Negative: Yes Physical Exam Vital Signs On Initial Exam: Initial Vitals Temp Pulse Resp BP Pulse Ox 96.7 F 74 14 158/98 97 09/24/18 12:43 09/24/18 12:43 09/24/18 12:43 09/24/18 12:43 09/24/18 12:43 Diagnostics - Vital Signs Vital Signs Temp Pulse Resp BP Pulse Ox 09/24/18 12:43 96.7 F 74 14 158/98 97 - Laboratory Result Diagrams: 09/24/18 13:25 09/24/18 13:25 Lab Statement: Any lab studies that have been ordered have been reviewed, and results considered in the medical decision making process. - CT ABD/PEL CT CT Interpretation Completed By: Radiologist Summary of CT Findings: IMPRESSION: 1. RIGHT NEPHROLITHIASIS INCLUDING A 0.3 CM RIGHT URETERAL CALCULUS WITH MILD RIGHT. HYDRONEPHROSIS AND PERINEPHRIC STRANDING. 2. CHOLELITHIASIS. 3. ATHEROSCLEROSIS. 4. CARDIOMEGALY. THIS REPORT WAS REVIEWED BY DR. NAZARIO. Re-Evaluation - Re-Evaluation First Eval Re-Evaluation Time: 14:01 Comment: At this time, the patient notes the presence of back pain. He also mentions that he had back pain earlier today as well. No Hx of kidney stones. Brother, Jim, with patient's , is present in the room. Pain is still present at RLQ. Appendix is still present per patient. Redness at the top of penis is noted, states that this is abnormal. Patient does not want more morphine at this time, noting some relief in Sx as a result of medication. He states his urologist is at [facility], he notes that if it is determined that he needs surgerical intervention, he would want to be transferred to [facility], regardless of whether or not his issues are urology- related. Second Eval Re-Evaluation Time: 15:08 Comment: Requesting more pain medication, he is drinking contrast without nausea at this time. Lab work was reviewed with patient. Third Eval Re-Evaluation Time: 16:15 Comment: Results of CT ABD/PEL were discussed. Phone discussion was had with Dr. Obrien, patient's urologist. He states that the patient can be give toradol, 2nd liter of fluid, PO fluid, and see if patient tolerates. Fourth Eval Re-Evaluation Time: 16:34 Comment: Discussed patient's case with pharmacist, patient will be given a one- time dose of ketorolac with Xarelto. Fifth Eval Re-Evaluation Time: 18:10 Comment: Patient reported improvment of Sx after treatment, he will be discharged to home. He is agreeable with this plan. Discharge - Discharge Plan Condition: Stable Disposition: HOME Prescriptions: HYDROcodone/ACETAMIN 5-325 MG* [[place] 5-325 TAB*] 2 tab PO Q6H PRN #20 tab MDD 8 PRN Reason: Severe Pain Tamsulosin HCl [Flomax] 0.4 mg PO QPM #10 cap Patient Education Materials: Kidney Stones (ED) Referrals: Chrissy Blair MD [Primary Care Provider] - 3 Days Additional Instructions: - Stay well hydrated - drink plenty of non-alcoholic, non-caffinated beverages -Okay to take a Tylenol product (Tylenol or [place]) every 6 hours for pain. Take with food. This medication may cause constipation and lightheadedness. It is recommended you take a stool softner as needed for constipation - Take Flomax daily as prescribed Contact your urologist or return with questions or concerns - Attestation Statements Document Initiated by Scribe: Yes Documenting Scribe: EMPERATRIZ B[place]INGHAM Provider For Whom Scribe is Documenting (Include Credential): KAREN NAZARIO MD Scribe Attestation: EMPERATRIZ Hernandez, scribed for KAREN NAZARIO MD on 09/24/18 at 1814.
[2018-09-24 13:44] LABS: ABS Basophils 0.1 10^3/ul (0-0.2); ABS Eosinophils 0.2 10^3/ul (0-0.6); ABS Lymphocytes 1.3 10^3/ul (1.0-4.8); ABS Monocytes 0.6 10^3/ul (0-0.8); ABS Nucleated RBC 0 10^3/ul; Eosinophil % 1.6 %; Hematocrit 47 % (42-52); Hemoglobin 15.5 g/dL (14.0-18.0); Lymphocyte % 11.6 %; Mean Corpuscular HGB Conc 33 g/dL (31-36); Mean Corpuscular Hemoglobin 31 pg (27-31); Mean Corpuscular Volume 93 fL (80-94); Mean Platelet Volume 9.5 fL (7.4-10.4); Nucleated Red Blood Cells % 0.1; Platelet Count 193 10^3/uL (150-450); Red Blood Count 5.03 10^6 /uL (4.18-5.48); Red Cell Distribution Width 14 % (10.5-15); White Blood Count 11.1 10^3/uL (3.5-10.8)
[2018-09-24 14:00] LABS: Urine Appearance Cloudy; Urine Bacteria Absent (Absent); Urine Bilirubin Negative (Negative); Urine Blood 3+ (Negative); Urine Color Amber; Urine Glucose Negative (Negative); Urine Ketones Trace (Negative); Urine Nitrite Negative (Negative); Urine Protein 2+(100 mg/dL) (Negative); Urine Red Blood Cell 3+(>10/hpf) (Absent); Urine Specific Gravity 1.024 (1.010-1.030); Urine Urobilinogen Negative (Negative); Urine White Blood Cell Trace(0-5/hpf) (Absent)
[2018-09-24 14:00] LABS: Albumin 3.9 g/dL (3.2-5.2); Albumin/Globulin Ratio 1.3 (1-3); BUN/Creatinine Ratio 30.3 (8-20); Calcium 9.6 mg/dL (8.6-10.3); EGFR African American 105.5 (>60); EGFR Non-African American 87.2 (>60); Globulin 2.9 g/dL (2-4); Potassium 4.2 mmol/L (3.5-5.0); Total Bilirubin 1.3 mg/dL (0.2-1.0); Total Protein 6.8 g/dL (6.4-8.9)
[2018-09-24] MEDS ORDERED: Iodixanol* (CONTRAST) 320 MG/ML 100 ML SDV IV ONE (15:33)
[2018-09-24] MEDS ORDERED: NS 0.9% 1000 ML** 1,000 ML IV SCH (16:00)
[2018-09-24] MEDS ORDERED: Ketorolac INJ* 30 MG/ML 1 ML VIAL IV PUSH ONE ×2 (16:29→16:34)
[2018-09-24 19:25] VITALS: BP 124/72
--- NOTE | 2018-09-27 12:25 | PN ---
Progress Note - Progress Note Date of Service: 09/24/18 Note: Pt. seen in ER / and dx with urolithiasis. Urine culture today is growing 10- 25k e. coli. I called and spoke with pt. today at 1220. Pt. states he sees a urologist at [facility] and that his urologist already saw culture results and spoke with pt. Pt. states that his urologist wants to hold off on an antibiotic until he sees him in office this coming . Pt. denies fever, chills, N/ V. Pt. states he does not believe he passed the stone but his pain has improved.
== END 2018-09-24 19:25 | disposition home or self-care (01) ==
LOC: ED 12:41
DX: R10.31 Right lower quadrant pain (principal); N13.2 Hydronephrosis with renal and ureteral calculous obstruction; K80.20 Calculus of gallbladder without cholecystitis without obstruction; I70.90 Unspecified atherosclerosis; I11.9 Hypertensive heart disease without heart failure; I25.10 Atherosclerotic heart disease of native coronary artery without angina pectoris; I73.9 Peripheral vascular disease, unspecified; I48.91 Unspecified atrial fibrillation; E11.9 Type 2 diabetes mellitus without complications; E03.9 Hypothyroidism, unspecified; E07.9 Disorder of thyroid, unspecified; Z79.899 Other long term (current) drug therapy; Z79.4 Long term (current) use of insulin
CPT/HCPCS: 36415; 74177; 80053; 81003; 81015; 83605; 83690; 83735; 85025; 87040; 87077; 87086; 87186; 96361; 96374; 96375; 96376; 99284; J1885; J2270; J2405; Q9967

== ENCOUNTER 2023-05-07 05:50 | Inpatient (IN) ==
[2023-05-07] MEDS ORDERED: NS 0.9% 500 ml BAG 500 ML IV ONE (06:04)
[2023-05-07 06:34] LABS: PCO2 Arterial 34 mmHg (35-45); PO2 Arterial 96 mmHg (80-100)
[2023-05-07 07:00] LABS: ABS Lymphocytes 0.3 10^3/uL (1.0-4.8); ABS Monocytes 0.3 10^3/uL (0.0-1.1); ABS Neutrophils 10.4 10^3/uL (1.5-7.6); ABS Nucleated RBC 0.01 10^3/ul; Hematocrit 45.5 % (38-53); Hemoglobin 15.2 g/dL (13.2-16.3); Lymphocyte % 2.3 %; Mean Corpuscular Hemoglobin 31.7 pg (27-33); Mean Corpuscular Hgb Conc 33.4 g/dL (31-36); Mean Corpuscular Volume 95.1 fL (80-97); Mean Platelet Volume 9.2 fL (7.5-11.2); Nucleated Red Blood Cells % 0.1 %/100WBC (0.0-0.8); Platelet Count 131 10^3/uL (150-450); Red Blood Count 4.79 10^6/uL (4.06-5.63); Red Cell Distribution Width 13.8 % (12-17); White Blood Count 10.9 10^3/uL (3.6-10.2)
[2023-05-07 07:19] LABS: Albumin 3.4 g/dL (3.2-5.2); Albumin/Globulin Ratio 1.1 (1-3); C Reactive Protein 155.44 mg/L (<8.01); Calcium 8.7 mg/dL (8.6-10.3); Creatinine, Serum 1.8 mg/dL (0.67-1.17); Globulin 3.1 g/dL (2-4); Potassium 4.5 mmol/L (3.5-5.0); Total Bilirubin 1.6 mg/dL (0.2-1.0); Total Protein 6.5 g/dL (6.4-8.9); eGFR CKD-EPI 41.3 (>60)
[2023-05-07] MEDS ORDERED: Lactated Ringers 1000 ml BAG 1,000 ML IV ONE ×4 (07:29→08:15)
[2023-05-07] MEDS ORDERED: Iodixanol (CONTRAST) 320 MG/ML 100 ML SDV IV ONE (07:33)
[2023-05-07] MEDS ORDERED: Piperacillin/Tazobac 3.375 BAG 3.375 GM/100 ML BAG IV ONE (08:19)
[2023-05-07] MEDS ORDERED: Norepinephrine 4 MG/250mL D5W 4,000 MCG/250 ML BAG IV ONE (08:29)
[2023-05-07] MEDS: Norepinephrine 4 MG/250mL D5W 4,000 MCG/250 ML BAG IV SCH ×7 (08:33→22:31)
[2023-05-07] MEDS ORDERED: Vancomycin 1,500 MG in NS 0.9% 250 ml 250 ML IVPB ONE (09:00)
[2023-05-07 09:30] LABS: High Sensitivity Troponin 1 Hr 42 pg/mL (<20)
[2023-05-07 09:54] LABS: Urine Appearance Turbid; Urine Bilirubin Negative (Negative); Urine Blood 2+ (Negative); Urine Color Yellow; Urine Glucose Negative (Negative); Urine Ketones Negative (Negative); Urine Nitrite Negative (Negative); Urine Protein 3+(>=500 mg/dL) (Negative); Urine Specific Gravity 1.012 (1.002-1.030); Urine Urobilinogen Negative (Negative)
[2023-05-07 10:12] LABS: Urine Bacteria 3+ (Absent); Urine Red Blood Cell 3+(>10/hpf) (Absent); Urine White Blood Cell 3+(>20/hpf) (Absent)
[2023-05-07 10:57] LABS: High Sensitivity Troponin 3 Hr 34 pg/mL (<20)
[2023-05-07] MEDS ORDERED: Zosyn per Pharmacy NOTE FOLLOW UP SCH ×2 (12:00→14:00)
[2023-05-07] MEDS ORDERED: Clindamycin 600 MG/D5W BAG 600 MG/50 ML BAG IV SCH (12:00)
[2023-05-07] MEDS ORDERED: Vancomycin per Pharmacy 1 EA NOTE FOLLOW UP SCH ×2 (12:00→14:00)
[2023-05-07] MEDS ORDERED: Piperacillin/Tazobactam 4.5 GM in NS 0.9% 100 ml BAG 100 ML IV ONE (13:30)
[2023-05-07] MEDS ORDERED: Acetaminophen IV 1 GM/100ML 1,000 MG/100 ML BAG IV PRN (13:30)
[2023-05-07] MEDS: Clindamycin 900 MG/D5W BAG 900 MG/50 ML BAG IVPB SCH ×2 (13:54→22:01)
[2023-05-07] MEDS ORDERED: Senna TAB 8.6 mg TAB PO PRN (13:54)
[2023-05-07] MEDS ORDERED: Polyethylene Glycol 3350 17 GM PACKET PO PRN (13:54)
[2023-05-07] MEDS ORDERED: Dextrose 50% Syringe 50 ml 25 GM/50 ML SYRINGE IV PUSH PRN (14:05)
[2023-05-07 16:15] LABS: PCO2 Arterial 39 mmHg (35-45); PO2 Arterial 109 mmHg (80-100)
[2023-05-07 16:16] LABS: Resp Rate 24
[2023-05-07] MEDS ORDERED: Sulfur Hexaflouride MICROSPHR 25 MG VIAL ONE (16:57)
[2023-05-07] MEDS: Vancomycin 1000 MG in NS 0.9% 250 ML IVPB SCH (17:37)
[2023-05-07] MEDS: Piperacillin/Tazobactam 4.5 GM in NS 0.9% 100 ml BAG 100 ML IV SCH (17:37)
[2023-05-07] MEDS ORDERED: Vasopressin 100 UNITS in D5W 250 ml BAG 245 ML IV SCH (18:00)
[2023-05-07] MEDS: Insulin GLARGINE 100 un/ml 10 ml VIAL SUBCUT SCH (18:36)
[2023-05-07] MEDS ORDERED: Lidocaine 1% VIAL 10 MG/ML 30 ML VIAL ONE (19:26)
[2023-05-07] MEDS: Brimonidine P 0.15%(NF) OPH SOL 5 ML BTL RIGHT EYE SCH (22:02)
[2023-05-07] MEDS: DULoxetine DR 30 mg CAP PO SCH (22:02)
[2023-05-08] MEDS ORDERED: Lidocaine 1% VIAL 10 MG/ML 30 ML VIAL ONE (00:56)
[2023-05-08] MEDS: Norepinephrine 4 MG/250mL D5W 4,000 MCG/250 ML BAG IV SCH ×4 (02:07→11:41)
[2023-05-08] MEDS: Piperacillin/Tazobactam 4.5 GM in NS 0.9% 100 ml BAG 100 ML IV SCH ×2 (02:11→09:16)
[2023-05-08] MEDS: Clindamycin 900 MG/D5W BAG 900 MG/50 ML BAG IVPB SCH ×2 (05:44→12:03)
[2023-05-08 05:58] LABS: ABS Lymphocytes 0.6 10^3/uL (1.0-4.8); ABS Monocytes 0.5 10^3/uL (0.0-1.1); ABS Neutrophils 9.1 10^3/uL (1.5-7.6); ABS Nucleated RBC 0.01 10^3/ul; Eosinophil % 0.1 %; Hematocrit 41.7 % (38-53); Hemoglobin 14.1 g/dL (13.2-16.3); Lymphocyte % 5.8 %; Mean Corpuscular Hemoglobin 31.7 pg (27-33); Mean Corpuscular Hgb Conc 33.9 g/dL (31-36); Mean Corpuscular Volume 93.5 fL (80-97); Mean Platelet Volume 9.6 fL (7.5-11.2); Nucleated Red Blood Cells % 0.1 %/100WBC (0.0-0.8); Platelet Count 103 10^3/uL (150-450); Red Blood Count 4.46 10^6/uL (4.06-5.63); White Blood Count 10.3 10^3/uL (3.6-10.2)
[2023-05-08 06:15] LABS: Calcium 7.9 mg/dL (8.6-10.3); Creatinine, Serum 1.34 mg/dL (0.67-1.17); Magnesium 1.9 mg/dL (1.9-2.7); Potassium 3.9 mmol/L (3.5-5.0); eGFR CKD-EPI 58.8 (>60)
[2023-05-08] MEDS: Vancomycin 1000 MG in NS 0.9% 250 ML IVPB SCH (07:14)
[2023-05-08] MEDS: DULoxetine DR 30 mg CAP PO SCH ×2 (09:06→21:16)
[2023-05-08] MEDS: Timolol 0.5% OPTH.SOL BTL BOTH EYES SCH (09:07)
[2023-05-08] MEDS: Insulin GLARGINE 100 un/ml 10 ml VIAL SUBCUT SCH (09:08)
[2023-05-08 10:15] LABS: Direct Bilirubin 0.5 mg/dL (0.03-0.18)
[2023-05-08] MEDS: Brimonidine P 0.15%(NF) OPH SOL 5 ML BTL RIGHT EYE SCH ×2 (10:43→21:16)
[2023-05-09] MEDS: Metoprolol Tartrate 5 mg VIAL 5 ml VIAL (1 mg/ml) IV PRN ×3 (00:26→03:15)
[2023-05-09 04:37] LABS: Calcium 8.5 mg/dL (8.6-10.3); Creatinine, Serum 1.12 mg/dL (0.67-1.17); Magnesium 2.1 mg/dL (1.9-2.7); Potassium 4.4 mmol/L (3.5-5.0); eGFR CKD-EPI 72.9 (>60)
[2023-05-09 04:52] LABS: ABS Lymphocytes 0.7 10^3/uL (1.0-4.8); ABS Monocytes 0.7 10^3/uL (0.0-1.1); ABS Neutrophils 6.9 10^3/uL (1.5-7.6); ABS Nucleated RBC 0.01 10^3/ul; Eosinophil % 0.2 %; Hematocrit 42.2 % (38-53); Hemoglobin 14.4 g/dL (13.2-16.3); Mean Corpuscular Hgb Conc 34.2 g/dL (31-36); Mean Corpuscular Volume 93.6 fL (80-97); Mean Platelet Volume 10.3 fL (7.5-11.2); Nucleated Red Blood Cells % 0.1 %/100WBC (0.0-0.8); Platelet Count 94 10^3/uL (150-450); Red Blood Count 4.51 10^6/uL (4.06-5.63); Red Cell Distribution Width 13.9 % (12-17); White Blood Count 8.4 10^3/uL (3.6-10.2)
[2023-05-09] MEDS ORDERED: Vancomycin Trough Check NOTE FOLLOW UP ONE (05:30)
[2023-05-09] MEDS: Brimonidine P 0.15%(NF) OPH SOL 5 ML BTL RIGHT EYE SCH ×2 (08:28→22:11)
[2023-05-09] MEDS: DULoxetine DR 30 mg CAP PO SCH ×2 (08:28→22:04)
[2023-05-09] MEDS: Timolol 0.5% OPTH.SOL BTL BOTH EYES SCH (08:28)
[2023-05-09] MEDS: cefTRIAXone 2 gm/50 mL D5W 2 GM/50 ML BAG IV SCH (08:44)
[2023-05-09] MEDS: Insulin GLARGINE 100 un/ml 10 ml VIAL SUBCUT SCH (10:00)
[2023-05-09] MEDS ORDERED: Metoprolol Tartrate 5 mg VIAL 5 ml VIAL (1 mg/ml) IV PRN ×2 (17:47→20:26)
[2023-05-09] MEDS ORDERED: Metoprolol Tartrate 5 mg VIAL 5 ml VIAL (1 mg/ml) IV SCH ×2 (19:15→19:51)
[2023-05-09] MEDS: Nystatin TOP POWDER 15 GM BTL TOPICAL SCH (22:05)
[2023-05-10 06:10] LABS: Calcium 8.7 mg/dL (8.6-10.3); Creatinine, Serum 1.01 mg/dL (0.67-1.17); Potassium 4.4 mmol/L (3.5-5.0); eGFR CKD-EPI 82.5 (>60)
[2023-05-10 06:54] LABS: ABS Basophils 0.1 10^3/uL (0.0-0.1); ABS Lymphocytes 0.5 10^3/uL (1.0-4.8); ABS Monocytes 0.7 10^3/uL (0.0-1.1); ABS Neutrophils 10.8 10^3/uL (1.5-7.6); Eosinophil % 0.1 %; Hematocrit 41.6 % (38-53); Hemoglobin 14.1 g/dL (13.2-16.3); Lymphocyte % 3.8 %; Mean Corpuscular Hemoglobin 31.5 pg (27-33); Mean Corpuscular Hgb Conc 33.9 g/dL (31-36); Mean Corpuscular Volume 92.9 fL (80-97); Mean Platelet Volume 10.7 fL (7.5-11.2); Platelet Count 95 10^3/uL (150-450); Red Blood Count 4.47 10^6/uL (4.06-5.63); Red Cell Distribution Width 13.8 % (12-17)
[2023-05-10] MEDS: DULoxetine DR 30 mg CAP PO SCH ×2 (10:07→20:25)
[2023-05-10] MEDS: Insulin GLARGINE 100 un/ml 10 ml VIAL SUBCUT SCH (10:07)
[2023-05-10] MEDS: cefTRIAXone 2 gm/50 mL D5W 2 GM/50 ML BAG IV SCH (10:07)
[2023-05-10] MEDS: Timolol 0.5% OPTH.SOL BTL BOTH EYES SCH (10:08)
[2023-05-10] MEDS: Nystatin TOP POWDER 15 GM BTL TOPICAL SCH ×2 (10:08→20:26)
[2023-05-10] MEDS: Brimonidine P 0.15%(NF) OPH SOL 5 ML BTL RIGHT EYE SCH ×2 (10:08→20:25)
[2023-05-11 06:05] LABS: Hematocrit 40.7 % (38-53); Hemoglobin 13.7 g/dL (13.2-16.3); Mean Corpuscular Hemoglobin 31.3 pg (27-33); Mean Corpuscular Hgb Conc 33.6 g/dL (31-36); Mean Platelet Volume 10.6 fL (7.5-11.2); Platelet Count 97 10^3/uL (150-450); Red Blood Count 4.38 10^6/uL (4.06-5.63); Red Cell Distribution Width 13.6 % (12-17); White Blood Count 8.8 10^3/uL (3.6-10.2)
[2023-05-11 06:26] LABS: Calcium 8.5 mg/dL (8.6-10.3); Creatinine, Serum 0.82 mg/dL (0.67-1.17); Potassium 4.5 mmol/L (3.5-5.0); eGFR CKD-EPI 97.5 (>60)
[2023-05-11] MEDS: cefTRIAXone 2 gm/50 mL D5W 2 GM/50 ML BAG IV SCH (08:42)
[2023-05-11] MEDS: DULoxetine DR 30 mg CAP PO SCH ×2 (08:46→19:42)
[2023-05-11] MEDS: Brimonidine P 0.15%(NF) OPH SOL 5 ML BTL RIGHT EYE SCH ×2 (08:50→19:41)
[2023-05-11] MEDS: Nystatin TOP POWDER 15 GM BTL TOPICAL SCH ×2 (08:50→19:44)
[2023-05-11] MEDS: Timolol 0.5% OPTH.SOL BTL BOTH EYES SCH (08:50)
[2023-05-11] MEDS: Insulin GLARGINE 100 un/ml 10 ml VIAL SUBCUT SCH (08:50)
[2023-05-11] MEDS ORDERED: Levalbuterol HFA INHALER MDI INH ONE (16:13)
[2023-05-12 06:43] LABS: ABS Eosinophils 0.3 10^3/uL (0.0-0.5); ABS Lymphocytes 0.8 10^3/uL (1.0-4.8); ABS Monocytes 0.8 10^3/uL (0.0-1.1); ABS Neutrophils 6.5 10^3/uL (1.5-7.6); ABS Nucleated RBC 0.01 10^3/ul; Eosinophil % 3.3 %; Hematocrit 41.9 % (38-53); Hemoglobin 14.2 g/dL (13.2-16.3); Lymphocyte % 9.7 %; Mean Corpuscular Hemoglobin 31.6 pg (27-33); Mean Corpuscular Hgb Conc 33.8 g/dL (31-36); Mean Corpuscular Volume 93.5 fL (80-97); Mean Platelet Volume 9.9 fL (7.5-11.2); Nucleated Red Blood Cells % 0.1 %/100WBC (0.0-0.8); Platelet Count 118 10^3/uL (150-450); Red Blood Count 4.48 10^6/uL (4.06-5.63); Red Cell Distribution Width 13.8 % (12-17); White Blood Count 8.4 10^3/uL (3.6-10.2)
[2023-05-12 08:01] LABS: Albumin 2.8 g/dL (3.2-5.2); Albumin/Globulin Ratio 0.9 (1-3); C Reactive Protein 64.97 mg/L (<8.01); Calcium 8.7 mg/dL (8.6-10.3); Creatinine, Serum 0.79 mg/dL (0.67-1.17); Magnesium 1.9 mg/dL (1.9-2.7); Potassium 4.7 mmol/L (3.5-5.0); Total Bilirubin 0.6 mg/dL (0.2-1.0); Total Protein 5.8 g/dL (6.4-8.9); eGFR CKD-EPI 98.6 (>60)
[2023-05-12] MEDS: Brimonidine P 0.15%(NF) OPH SOL 5 ML BTL RIGHT EYE SCH ×2 (09:07→20:20)
[2023-05-12] MEDS: Timolol 0.5% OPTH.SOL BTL BOTH EYES SCH (09:08)
[2023-05-12] MEDS: DULoxetine DR 30 mg CAP PO SCH ×2 (09:09→20:20)
[2023-05-12] MEDS: Insulin GLARGINE 100 un/ml 10 ml VIAL SUBCUT SCH (09:14)
[2023-05-12] MEDS: Nystatin TOP POWDER 15 GM BTL TOPICAL SCH ×2 (09:17→20:20)
[2023-05-12] MEDS: cefTRIAXone 2 gm/50 mL D5W 2 GM/50 ML BAG IV SCH (09:17)
[2023-05-12] MEDS ORDERED: Albuterol/Ipratropium NEB.SOL (2.5/0.5 MG) 3 ML NEB.SOLN INH ONE (09:25)
[2023-05-13 07:03] LABS: ABS Eosinophils 0.3 10^3/uL (0.0-0.5); ABS Lymphocytes 1.1 10^3/uL (1.0-4.8); ABS Monocytes 0.8 10^3/uL (0.0-1.1); ABS Neutrophils 6.2 10^3/uL (1.5-7.6); Eosinophil % 3.2 %; Hematocrit 41.3 % (38-53); Hemoglobin 13.7 g/dL (13.2-16.3); Lymphocyte % 12.7 %; Mean Corpuscular Hemoglobin 31.1 pg (27-33); Mean Corpuscular Hgb Conc 33.1 g/dL (31-36); Mean Corpuscular Volume 93.8 fL (80-97); Mean Platelet Volume 9.4 fL (7.5-11.2); Nucleated Red Blood Cells % 0.1 %/100WBC (0.0-0.8); Platelet Count 166 10^3/uL (150-450); Red Cell Distribution Width 13.6 % (12-17); White Blood Count 8.3 10^3/uL (3.6-10.2)
[2023-05-13 07:06] LABS: Calcium 8.4 mg/dL (8.6-10.3); Creatinine, Serum 0.71 mg/dL (0.67-1.17); Potassium 4.7 mmol/L (3.5-5.0); eGFR CKD-EPI 101.8 (>60)
[2023-05-13] MEDS: DULoxetine DR 30 mg CAP PO SCH ×2 (08:19→20:43)
[2023-05-13] MEDS: Insulin GLARGINE 100 un/ml 10 ml VIAL SUBCUT SCH (08:23)
[2023-05-13] MEDS: Brimonidine P 0.15%(NF) OPH SOL 5 ML BTL RIGHT EYE SCH ×2 (08:24→20:43)
[2023-05-13] MEDS: Nystatin TOP POWDER 15 GM BTL TOPICAL SCH ×2 (08:25→20:43)
[2023-05-13] MEDS: Timolol 0.5% OPTH.SOL BTL BOTH EYES SCH (08:25)
[2023-05-13] MEDS: cefTRIAXone 2 gm/50 mL D5W 2 GM/50 ML BAG IV SCH (08:26)
[2023-05-14] MEDS: Brimonidine P 0.15%(NF) OPH SOL 5 ML BTL RIGHT EYE SCH ×2 (07:57→22:11)
[2023-05-14] MEDS: Timolol 0.5% OPTH.SOL BTL BOTH EYES SCH (07:57)
[2023-05-14] MEDS: Insulin GLARGINE 100 un/ml 10 ml VIAL SUBCUT SCH (07:58)
[2023-05-14] MEDS: DULoxetine DR 30 mg CAP PO SCH ×2 (07:59→22:11)
[2023-05-14] MEDS: Nystatin TOP POWDER 15 GM BTL TOPICAL SCH ×2 (08:31→22:12)
[2023-05-14] MEDS: cefTRIAXone 2 gm/50 mL D5W 2 GM/50 ML BAG IV SCH (08:31)
[2023-05-14 09:05] LABS: Hematocrit 41.3 % (38-53); Hemoglobin 14.1 g/dL (13.2-16.3); Mean Corpuscular Hemoglobin 31.8 pg (27-33); Mean Corpuscular Hgb Conc 34.2 g/dL (31-36); Mean Platelet Volume 8.8 fL (7.5-11.2); Platelet Count 196 10^3/uL (150-450); Red Blood Count 4.44 10^6/uL (4.06-5.63); Red Cell Distribution Width 13.7 % (12-17); White Blood Count 7.4 10^3/uL (3.6-10.2)
[2023-05-14 09:20] LABS: Calcium 8.5 mg/dL (8.6-10.3); Creatinine, Serum 0.71 mg/dL (0.67-1.17); Potassium 4.5 mmol/L (3.5-5.0); eGFR CKD-EPI 101.8 (>60)
[2023-05-15] MEDS: Insulin GLARGINE 100 un/ml 10 ml VIAL SUBCUT SCH (09:02)
[2023-05-15] MEDS: DULoxetine DR 30 mg CAP PO SCH (09:03)
[2023-05-15] MEDS: cefTRIAXone 2 gm/50 mL D5W 2 GM/50 ML BAG IV SCH (09:08)
[2023-05-15] MEDS: Nystatin TOP POWDER 15 GM BTL TOPICAL SCH (09:09)
[2023-05-15] MEDS: Timolol 0.5% OPTH.SOL BTL BOTH EYES SCH (10:11)
[2023-05-15] MEDS: Brimonidine P 0.15%(NF) OPH SOL 5 ML BTL RIGHT EYE SCH (10:11)
[2023-05-15 14:01] VITALS: BP 110/51
== END 2023-05-15 16:49 | disposition home or self-care (01) | DRG 871 ==
LOC: ED 05:50 → SUATTDRO 09:19 → EDHOLD 09:19 → ICU 10:17 → SSU 05-09 07:54 → MEDTELE 05-09 19:29
PROVIDERS: ADMIT Student in an Organized Health Care Education/Training Program; ATTEND Internal Medicine